=== PATIENT | female | born 1940 | race Caucasian/White ===

== ENCOUNTER 2016-08-10 15:49 | Emergency (ER) | payer MEDICARE ==
[2016-08-10 15:59] VITALS: TEMP 98.4; BMI 32.4
[2016-08-10] MEDS ORDERED: DILTIAZEM 25 MG/5 ML VIAL IV ONE (16:08)
[2016-08-10 16:22] LABS: AUTOMATED BASOPHIL 1.2 % (0-2); AUTOMATED EOSINOPHIL 2.9 % (0-5); AUTOMATED LYMPH 18.1 % (17-44); AUTOMATED MONOCYTE 9.6 % (3-10); AUTOMATED NEUTROPHIL 68.2 % (45-76); MPV 10.7 fL (7.4-10.4)
--- NOTE | 2016-08-10 16:24 | EDPRACDOC ---
- General Information Chief Complaint: Dyspnea/Resp distress Stated Complaint: ABNORMAL EKG NO CP SENT FROM URGENT CARE Time Seen by Provider: 08/10/16 16:03 Information Source: Patient, Family Mode Of Arrival: Car Home Medications: Home Medications Amlodipine Besylate [Norvasc] 5 mg PO DAILY 08/10/16 Apixaban [Eliquis] 5 mg PO BID 08/10/16 Carvedilol [Coreg] 3.125 mg PO BID 08/10/16 Cefdinir 300 mg PO .BID X 10D 08/10/16 Celecoxib (anti-inflammatory) [Celebrex] 200 mg PO BID 08/10/16 Diltiazem HCl [Cardizem Cd] 120 mg PO DAILY #30 cap 08/10/16 Fenofibrate 160 mg PO DAILY 08/10/16 Gabapentin 600 - 1,800 mg PO QHS 08/10/16 Hydrochlorothiazide 12.5 mg PO DAILY 08/10/16 Losartan Potassium [Cozaar] 100 mg PO DAILY 08/10/16 Lovastatin 20 mg PO QHS 08/10/16 Metformin HCl 500 mg PO BID 08/10/16 Allergies/Adverse Reactions: Allergies Allergy/AdvReac Type Severity Reaction Status Date / Time codeine Allergy Nausea only Verified 08/10/16 15:53 - History of Present Illness Onset: FEW DAYS HPI: PT HAS BEEN SOB FOR THE PAST FEW DAYS. PT WAS DX'D WITH A.FIB BY DR. KEITH ABOUT 1 WEEK AGO. PT WAS PUT ON MEDS (?NAME). PT WENT TO URGENT CARE TODAY B/ C SHE WAS SOB. THE PT DOES NOT FEEL HER HEART IS IRREGULAR OR FAST. THE EKG DONE AT URGENT CARE SHOWED A.FIB WITH HR ON 98 TO 108. PT WAS SENT HERE. Shortness of Breath: Moderate Relevant History: Reports: None Rhinorrhea: Reports: None Ear Symptoms: Reports: None SOB Worsens with: Reports: Exertion SOB Improves with: Reports: Nothing ED Past Medical History - Patient Medical History Cardiac History: Reports: Atrial Fibrillation, Hypertension GI/ History: Reports: Kidney Stones Systemic History: Reports: Cancer (R breast) Surgical History: Reports: Hysterectomy, Other (KIDNEY SURGERY, RIGHT BREAST) - Social Medical History Smoking Status: Never smoker ETOH: None Substance Abuse: None Lives In: Home EDM Review of Systems - Review of Systems ROS Negative Except as Marked: Yes All systems reviewed and were negative except as marked Respiratory: Shortness of Breath - Physical Exam Constitutional: Distress Oriented to: Time, Person, Place Last recorded Vital Signs: Last Vital Signs Temp 98.4 F 08/10/16 15:53 Pulse 132 H 08/10/16 16:12 Resp 18 08/10/16 16:12 BP 165/115 H 08/10/16 16:12 Pulse Ox 94 08/10/16 16:12 Oxygen Pulse Oxygen Saturation 94 O2 Device Room Air Oxygen Flow Rate Fraction of Inspired Oxygen ( FIO2) - HEENT Head: Normal ( normocephalic) Eye Exam: Normal (PERRL, EOMI, Sclera white) Oropharynx: Normal (Pharynx:Moist without exudate,Gums-no swelling) ENT EAC: Normal TMJ: Normal Nose: No Symptoms Reported (septum midline) Neck: Normal (FROM, trachea at midline) - Respiratory/Cardiovascular Respiratory: Tachypnea Cardiovascular: Tachycardia, Irregular - GI Auscultation: Normal (NABS) Palpation: Normal (Soft,No rebound or guarding, non distended) Tenderness: Non tender Reaves's Sign: Negative - Musculoskeletal Back: Normal (Non-Tender) Extremities: Normal (Normal tone, Pulses 2+ No cyanosis or edema, FROM) - Integumentary Skin: Normal, Warm, Dry Lymphatics: Normal (no adenopathy) - Neurologic Memory Impaired: Normal Motor Function: Normal (Normal tone, Pulses 2+ No cyanosis or edema, FROM) Cranial Nerve: Normal (CN II-X11 intact sensation, strength 5/5) Cerebellar: Normal Mood Description: Normal Thought: Coherent Perception: Normal ED SOB MDM - Results Result Diagrams: 08/10/16 16:10 08/10/16 16:10 - EKG EKG #1 EKG Time: 16:21 -: Yes EKG interpreted by me Rate: bpm: 87 [place]: Normal Rhythm: Afib, PVCs Block: None Hypertrophy: None ST: New, Inf, Ischemia Comparison: 01/28/10 - Diagnostic Imaging Chest Image interpreted by: Radiologist Diagnostic Imaging Comments: Stable borderline cardiomegaly, vascular congestion and right basilar atelectasis. No acute findings demonstrated. - Additional Information Additional Information: UPON MY EXAM, PT'S HR ON THE MONITOR IN THE UPPER 140S. 1 DOSE OF THE CARDIZEM 20 MG IV BROUGHT PT'S HR TO THE 70S. IT HAS STAYED THAT WAY FOR ALMOST 2 HRS. PT IS FEELING MUCH BETTER. THE NEW MED PT WAS PUT ON IS COREG. I WILL STOP THAT AND ADD CARDIZEM SINCE THAT HELPED. Decision Time to Discharge: 17:38 - Departure Yes I personally saw and evaluated the patient. Disposition: Home Condition: Fair Final Diagnosis: Paroxysmal atrial fibrillation with RVR Instructions: Atrial Fibrillation (ED) Education/Counseling Given To: Patient, Family Member Education/Counseling Given Regarding: Diagnosis, Treatment, Follow Up Referrals: Dillan Almonte MD [Primary Care Provider] - One Week Lloyd Guzman MD [Staff Physician] - One Week Prescriptions: Diltiazem HCl [Cardizem Cd] 120 mg PO DAILY #30 cap Forms: ED Discharge Instructions Additional Instructions: STOP COREG
[2016-08-10 16:37] LABS: PARTIAL THROMB. TIME 25.6 SEC (22-35); PT-INR 1.1
[2016-08-10 16:38] LABS: BLOOD UREA NITROGEN 11 MG/DL (7-17); CALCIUM 9.6 MG/DL (8.4-10.2); CALCULATED OSMOLALITY 267 MOs/Kg (270-290); CHLORIDE 101 mEq/L (98-107); GLUCOSE 100 MG/DL (70-99); SODIUM LEVEL 139 mEq/L (137-146); TOTAL PROTEIN 7.1 G/DL (6.3-8.2)
--- NOTE | 2016-08-10 16:38 | DIRPT ---
CLINICAL DATA: Shortness of breath. Recently diagnosed with irregular heartbeat. EXAM: PORTABLE CHEST 1 VIEW COMPARISON: 01/28/2010. FINDINGS: 1615 hours. The heart size and mediastinal contours are stable. There is aortic atherosclerosis and mild chronic vascular congestion. There is elevation of the right hemidiaphragm with stable right basilar atelectasis. No edema, confluent airspace opacity or pleural effusion identified. The bones appear unchanged. Telemetry leads overlie the chest. IMPRESSION: Stable borderline cardiomegaly, vascular congestion and right basilar atelectasis. No acute findings demonstrated. Electronically Signed By: Shad Sarmiento M.D. On: 08/10/2016 16:35
[2016-08-10 16:49] LABS: RBC/URINE 0-2 (0-5)
[2016-08-10 16:53] LABS: FREE T3 2.94 pg/mL (2.77-5.27); FREE T4 1.71 ng/dL (0.78-2.19)
[2016-08-10] MEDS ORDERED: Diltiazem HCl 100 MG in D5W 100 ML IV SCH (17:00)
[2016-08-10 17:06] LABS: LEUKOCYTES/URINE NEG (NEGATIVE); NITRITE/URINE NEG (NEGATIVE); URINE OCCULT BLOOD NEG (NEG/TRACE)
[2016-08-10 17:07] LABS: hTSH 2.11 uIU/mL (0.5-4.67)
[2016-08-10 17:51] VITALS: BP 138/78; PULSE 88
--- NOTE | 2016-08-11 15:03 | PCM.CARDCO ---
Consultation Date: 08/11/16 Requesting Physician: Dillan Almonte Millwright Supervisor: Timothy Monroy - History of Present Illness Dr. Almonte called and asked for me to make arrangements to admit this patient to the hospital with a history of recent onset of atrial fibrillation treated as an outpatient with anticoagulant and calcium channel kofi was failed rate control and is symptomatic with the resting heart rate of 150 beats per minute. He also feels she is in congestive heart failure she short of breath and weak and was seen yesterday in our emergency room and discharged home once her heart rate was controlled. Her chads 2 Vasc score is 5. She relates me she has been short of breath for few days with weakness orthopnea PND and wheezing. Her predominant complaint is shortness of breath. No chest pain palpitation or syncope and she is unaware how long she has been in atrial fibrillation. She has no known history of heart disease. Her medical problems include hypertension diabetes and hyperlipidemia. She has had no bleeding complications were contraindication anticoagulation. Chief Complaint: Recurrent atrial fibrillation - Past Medical and Surgical History Cardiac History: Reports: Atrial Fibrillation, Hypertension, Hypercholesterolemia GI/ History: Reports: Kidney Stones Systemic History: Reports: Cancer (R breast), Diabetes Neurological History: Reports: Multiple Sclerosis Past Surgical History: Reports: Hysterectomy, Other (KIDNEY SURGERY, RIGHT BREAST) Allergies codeine Allergy (Verified 08/10/16 15:53) Nausea only Home Medications Amlodipine Besylate [Norvasc] 5 mg PO DAILY 08/10/16 Apixaban [Eliquis] 5 mg PO BID 08/10/16 Carvedilol [Coreg] 3.125 mg PO BID 08/10/16 Cefdinir 300 mg PO .BID X 10D 08/10/16 Celecoxib (anti-inflammatory) [Celebrex] 200 mg PO BID 08/10/16 Diltiazem HCl [Cardizem Cd] 120 mg PO DAILY #30 cap 08/10/16 Fenofibrate 160 mg PO DAILY 08/10/16 Gabapentin 600 - 1,800 mg PO QHS 08/10/16 Hydrochlorothiazide 12.5 mg PO DAILY 08/10/16 Losartan Potassium [Cozaar] 100 mg PO DAILY 08/10/16 Lovastatin 20 mg PO QHS 08/10/16 Metformin HCl 500 mg PO BID 08/10/16 - Social History Lives: With Family Smoking Status: Never smoker Social History: Denies: Alcohol Use, Substance Use Disorder - Family History Reports: Cardiac Disorders (Father) - Review of Systems Yes All systems reviewed and were negative except as marked Constitutional: Weakness. negative: Chills, Fever - Eyes No Symptoms Reported - Ears No Symptoms Reported - Nose Congestion - Mouth Mouth: No Symptoms Reported - Throat/Neck No Symptoms Reported - Respiratory Cough, Shortness of Breath, Wheezing. negative: Sputum - Cardiovascular Edema, Orthopnea, PND. negative: Chest Pain, Palpitations - Gastrointestinal Gastrointestinal: Nausea (Today) - Genitourinary Genitourinary: Other (Incontinence) - Neurological Gait Difficulty - Musculoskeletal Musculoskeletal:: No Symptoms Reported - Integumentary No Symptoms Reported - Allergic/Immunologic No Symptoms Reported - Hematologic No Symptoms Reported - Endocrine No Symptoms Reported - Psychiatric No Symptoms Reported - Physical Exam Constitutional: Other (She appears short of breath and has audible wheezing) Oriented to: Time, Person, Place Exam: Last Vital Signs Temp 98.4 F 08/10/16 15:53 Pulse 88 08/10/16 17:12 Resp 16 08/10/16 17:12 BP 138/78 08/10/16 17:12 Pulse Ox 97 08/10/16 17:12 Intake & Output 08/10/16 08/11/16 08/11/16 23:59 07:59 15:59 Intake Total 0 Balance 0 - HEENT Head: Normal (Moderate neck vein distention) Eye: Normal (PERRL, EOMI, Sclera white) Oropharynx: Normal (Pharynx:Moist without exudate,Gums-no swelling) ENT EAC: Normal TMJ: Normal Nose: No Symptoms Reported (septum midline) - Respiratory/Cardiovascular Respiratory: Diminished, Tachypnea, Wheezes. negative: Rales, Rhonchi Cardiovascular: Irregular (Variable 1st heart sound no S3 no murmur). negative : Systolic murmur, Gallop/S3 - GI Auscultation: Normal (NABS) Palpation: Enlarged liver (And pulsatile) Tenderness: Non tender - Musculoskeletal Back: Normal (Non-Tender) Extremities: Normal (Normal tone, Pulses 2+ No cyanosis or edema, FROM), Edema ( Plus one pretibial edema bilaterally), Femoral Pulse, Pedal Edema, Pedal Pulse, Radial Pulse. negative: Calf Tenderness, Clubbing, Cyanosis - Integumentary Skin: Normal, Warm, Dry Lymphatics: Normal (no adenopathy) - Neurologic Memory Impaired: Normal Cerebellar: Normal Mood Description: Normal Thought: Coherent Perception: Normal - Lab Results Laboratory Tests 08/10/16 08/10/16 08/10/16 16:10 16:10 16:10 Hgb 12.3 Hct 36.9 D-Dimer Quant (PE/DVT) 928 H Potassium 4.4 Troponin I < 0.01 Chest x-ray is consistent with heart mixer attendant AFib with heart rate of 130 to 140 per minute - Assessment/Plan (1) Paroxysmal atrial fibrillation with RVR I48.0 - PAROXYSMAL ATRIAL FIBRILLATION Acute Present on Admission: Yes Comment: She is in atrial fibrillation rapid rate of uncertain duration best called persistent at this time. Clinically she has decompensated heart failure and bronchospasm is best treated with IV calcium channel kofi for rate control bronchodilators for bronchospasm and diuretic for heart failure with assessment of cardiac function by echocardiogram. Try to avoid beta-blockers at this time. If she requires a 2nd drug digoxin will be used (2) Heart failure I50.9 - HEART FAILURE, UNSPECIFIED Acute Present on Admission: Yes unspecified heart failure type Comment: Clinically she is in decompensated heart failure and should be treated IV diuretic. (3) Hypertensive heart disease with CHF I11.0 - HYPERTENSIVE HEART DISEASE WITH HEART FAILURE Acute Comment: Stable continue her usual antihypertensives (4) Diabetes mellitus E11.9 - TYPE 2 DIABETES MELLITUS WITHOUT COMPLICATIONS Chronic Present on Admission: Yes type 2 Comment: Stable continue usual oral medication
--- NOTE | 2016-08-12 15:00 | CAPUEKG ---
[place], [place] Test Date: 2016-08-11 Pat Name: MORENA OTERO Department: Room: Gender: Female Histology Assistant: : Requested By: Order Number: Reading MD: Timothy Monroy MD Measurements Intervals [place] Rate: 92 P: [place]: QRS: 69 QRSD: 78 T: -43 QT: 336 QTc: 415 Interpretive Statements Atrial fibrillation Abnormal QRS-T angle, consider primary T wave abnormality Abnormal ECG Electronically Signed On 08-12-16 15:00:12 EST by Timothy Monroy MD [id number]> [id number]
== END 2016-08-10 17:52 | disposition home or self-care (01) ==
LOC: ED 15:49
DX: I48.0 Paroxysmal atrial fibrillation (principal)
CPT/HCPCS: 36415; 71010; 80053; 81001; 84439; 84443; 84481; 84484; 85025; 85379; 85610; 85730; 93005; 96374; 99284; J3490

== ENCOUNTER 2016-08-11 14:58 | Inpatient (IN) | payer MEDICARE ==
--- NOTE | 2016-08-11 15:03 | PCM.CARDCO ---
Consultation Date: 08/11/16 Requesting Physician: Dillan Almonte Powder Core Tester: Timothy Monroy - History of Present Illness Dr. Almonte called and asked for me to make arrangements to admit this patient to the hospital with a history of recent onset of atrial fibrillation treated as an outpatient with anticoagulant and calcium channel kofi was failed rate control and is symptomatic with the resting heart rate of 150 beats per minute. He also feels she is in congestive heart failure she short of breath and weak and was seen yesterday in our emergency room and discharged home once her heart rate was controlled. Her chads 2 Vasc score is 5. She relates me she has been short of breath for few days with weakness orthopnea PND and wheezing. Her predominant complaint is shortness of breath. No chest pain palpitation or syncope and she is unaware how long she has been in atrial fibrillation. She has no known history of heart disease. Her medical problems include hypertension diabetes and hyperlipidemia. She has had no bleeding complications were contraindication anticoagulation. Chief Complaint: Recurrent atrial fibrillation - Past Medical and Surgical History Cardiac History: Reports: Atrial Fibrillation, Hypertension, Hypercholesterolemia GI/ History: Reports: Kidney Stones Systemic History: Reports: Cancer (R breast), Diabetes Neurological History: Reports: Multiple Sclerosis Past Surgical History: Reports: Hysterectomy, Other (KIDNEY SURGERY, RIGHT BREAST) Allergies codeine Allergy (Verified 08/10/16 15:53) Nausea only Home Medications Amlodipine Besylate [Norvasc] 5 mg PO DAILY 08/10/16 Apixaban [Eliquis] 5 mg PO BID 08/10/16 Carvedilol [Coreg] 3.125 mg PO BID 08/10/16 Cefdinir 300 mg PO .BID X 10D 08/10/16 Celecoxib (anti-inflammatory) [Celebrex] 200 mg PO BID 08/10/16 Diltiazem HCl [Cardizem Cd] 120 mg PO DAILY #30 cap 08/10/16 Fenofibrate 160 mg PO DAILY 08/10/16 Gabapentin 600 - 1,800 mg PO QHS 08/10/16 Hydrochlorothiazide 12.5 mg PO DAILY 08/10/16 Losartan Potassium [Cozaar] 100 mg PO DAILY 08/10/16 Lovastatin 20 mg PO QHS 08/10/16 Metformin HCl 500 mg PO BID 08/10/16 - Social History Lives: With Family Smoking Status: Never smoker Social History: Denies: Alcohol Use, Substance Use Disorder - Family History Reports: Cardiac Disorders (Father) - Review of Systems Yes All systems reviewed and were negative except as marked Constitutional: Weakness. negative: Chills, Fever - Eyes No Symptoms Reported - Ears No Symptoms Reported - Nose Congestion - Mouth Mouth: No Symptoms Reported - Throat/Neck No Symptoms Reported - Respiratory Cough, Shortness of Breath, Wheezing. negative: Sputum - Cardiovascular Edema, Orthopnea, PND. negative: Chest Pain, Palpitations - Gastrointestinal Gastrointestinal: Nausea (Today) - Genitourinary Genitourinary: Other (Incontinence) - Neurological Gait Difficulty - Musculoskeletal Musculoskeletal:: No Symptoms Reported - Integumentary No Symptoms Reported - Allergic/Immunologic No Symptoms Reported - Hematologic No Symptoms Reported - Endocrine No Symptoms Reported - Psychiatric No Symptoms Reported - Physical Exam Constitutional: Other (She appears short of breath and has audible wheezing) Oriented to: Time, Person, Place Exam: Last Vital Signs Temp 98.4 F 08/10/16 15:53 Pulse 88 08/10/16 17:12 Resp 16 08/10/16 17:12 BP 138/78 08/10/16 17:12 Pulse Ox 97 08/10/16 17:12 Intake & Output 08/10/16 08/11/16 08/11/16 23:59 07:59 15:59 Intake Total 0 Balance 0 - HEENT Head: Normal (Moderate neck vein distention) Eye: Normal (PERRL, EOMI, Sclera white) Oropharynx: Normal (Pharynx:Moist without exudate,Gums-no swelling) ENT EAC: Normal TMJ: Normal Nose: No Symptoms Reported (septum midline) - Respiratory/Cardiovascular Respiratory: Diminished, Tachypnea, Wheezes. negative: Rales, Rhonchi Cardiovascular: Irregular (Variable 1st heart sound no S3 no murmur). negative : Systolic murmur, Gallop/S3 - GI Auscultation: Normal (NABS) Palpation: Enlarged liver (And pulsatile) Tenderness: Non tender - Musculoskeletal Back: Normal (Non-Tender) Extremities: Normal (Normal tone, Pulses 2+ No cyanosis or edema, FROM), Edema ( Plus one pretibial edema bilaterally), Femoral Pulse, Pedal Edema, Pedal Pulse, Radial Pulse. negative: Calf Tenderness, Clubbing, Cyanosis - Integumentary Skin: Normal, Warm, Dry Lymphatics: Normal (no adenopathy) - Neurologic Memory Impaired: Normal Cerebellar: Normal Mood Description: Normal Thought: Coherent Perception: Normal - Lab Results Laboratory Tests 08/10/16 08/10/16 08/10/16 16:10 16:10 16:10 Hgb 12.3 Hct 36.9 D-Dimer Quant (PE/DVT) 928 H Potassium 4.4 Troponin I < 0.01 Chest x-ray is consistent with heart equipment monitor phototypesetting AFib with heart rate of 130 to 140 per minute - Assessment/Plan (1) Paroxysmal atrial fibrillation with RVR I48.0 - PAROXYSMAL ATRIAL FIBRILLATION Acute Present on Admission: Yes Comment: She is in atrial fibrillation rapid rate of uncertain duration best called persistent at this time. Clinically she has decompensated heart failure and bronchospasm is best treated with IV calcium channel kofi for rate control bronchodilators for bronchospasm and diuretic for heart failure with assessment of cardiac function by echocardiogram. Try to avoid beta-blockers at this time. If she requires a 2nd drug digoxin will be used (2) Heart failure I50.9 - HEART FAILURE, UNSPECIFIED Acute Present on Admission: Yes unspecified heart failure type Comment: Clinically she is in decompensated heart failure and should be treated IV diuretic. (3) Hypertensive heart disease with CHF I11.0 - HYPERTENSIVE HEART DISEASE WITH HEART FAILURE Acute Comment: Stable continue her usual antihypertensives (4) Diabetes mellitus E11.9 - TYPE 2 DIABETES MELLITUS WITHOUT COMPLICATIONS Chronic Present on Admission: Yes type 2 Comment: Stable continue usual oral medication
[2016-08-11] MEDS ORDERED: DILTIAZEM 25 MG/5 ML VIAL IV ONE (16:16)
[2016-08-11] MEDS ORDERED: BISACODYL 5 MG TAB PO PRN (16:23)
[2016-08-11] MEDS ORDERED: GUAIFEN 100 MG-DEXTROMETH 10 MG PER 5 ML PO PRN (16:23)
[2016-08-11] MEDS ORDERED: ONDANSETRON HCL 4 MG/2 ML VIAL IV PRN (16:23)
[2016-08-11] MEDS ORDERED: MAGNESIUM HYDROXIDE 30 ML BOTTLE PO PRN (16:23)
[2016-08-11] MEDS ORDERED: Aluminum;Magnesium;Simethicone 30 ML UDC PO PRN (16:23)
[2016-08-11] MEDS ORDERED: Albuterol/Ipratropium Neb 3 ML NEB NEB PRN (16:24)
[2016-08-11] MEDS ORDERED: Pharmacy Order Set Alert SCH (17:00)
[2016-08-11] MEDS ORDERED: Diltiazem HCl 100 MG in D5W 100 ML IV SCH (17:00)
[2016-08-11] MEDS: MetFORMIN 500 MG IMMED RELEASE TAB PO SCH (17:44)
[2016-08-11] MEDS: FUROSEMIDE 40 MG/4 ML VIAL IV SCH (17:44)
[2016-08-11 17:57] LABS: hTSH 2.08 uIU/mL (0.5-4.67)
[2016-08-11] MEDS ORDERED: Vaccine Screening Complete SCH (18:00)
[2016-08-11] MEDS ORDERED: LOVASTATIN 20 MG PO SCH (21:00)
[2016-08-11] MEDS ORDERED: Non-Formulary Medication ITEM (Gabapentin [Gabapentin] 600 MG) PO SCH (21:00)
[2016-08-11] MEDS: APIXABAN 5 MG TABLET PO SCH (21:33)
[2016-08-11] MEDS: GABAPENTIN 300 MG CAP PO SCH (21:33)
[2016-08-11] MEDS: CEFDINIR 300 MG CAP PO SCH (21:34)
[2016-08-11] MEDS: PRAVASTATIN 20 MG TAB PO SCH (21:34)
[2016-08-11] MEDS: DILTIAZEM 30 MG TAB PO SCH (21:37)
[2016-08-11] MEDS: ZOLPIDEM TARTRATE 5 MG TAB PO PRN (22:10)
[2016-08-12] MEDS: DILTIAZEM 30 MG TAB PO SCH ×4 (04:05→22:39)
[2016-08-12 06:07] LABS: BLOOD UREA NITROGEN 10 MG/DL (7-17); CALCIUM 9.1 MG/DL (8.4-10.2); CALCULATED OSMOLALITY 268 MOs/Kg (270-290); CHLORIDE 99 mEq/L (98-107); GLUCOSE 92 MG/DL (70-99); SODIUM LEVEL 140 mEq/L (137-146)
[2016-08-12] MEDS: MetFORMIN 500 MG IMMED RELEASE TAB PO SCH ×2 (06:33→16:29)
[2016-08-12] MEDS ORDERED: CHAPSTICK LIP BALM TOP PRN (06:36)
--- NOTE | 2016-08-12 07:34 | PCM.CARD ---
- Subjective Reason for visit: For atrial fibrillation and heart failure Current Assessment: No New Symptoms, Cough (Without sputum), Chest Pain (Tender left lower chest wall not pleuritic.), Shortness of Breath (Mild), Wheezing ( Improved). negative: Sputum Vital Signs: Last Vital Signs Temp 98 F 08/12/16 04:06 Pulse 65 08/12/16 06:14 Resp 20 08/12/16 04:06 BP 112/80 08/12/16 04:06 Pulse Ox 95 08/12/16 04:06 Vital Signs Temp 98 F 08/12/16 04:06 Pulse 65 08/12/16 06:14 Resp 20 08/12/16 04:06 BP 112/80 08/12/16 04:06 Pulse Ox 95 08/12/16 04:06 Intake & Output 08/10/16 08/11/16 08/12/16 23:59 23:59 23:59 Intake Total 317 966 Output Total 1600 Balance -1283 966 Patient's weight 195 lb 201 lb 11.2 oz 203 lb 8 oz Intake: IV Fluids 2 966 Cardizem 100 mg In D5w -- 2 Addvantage Bag 100 ml @ 5 MG/HR 5 mls/hr IV Q10H [facility] Rx#:[id number] Left Outer Forearm 966 Oral 315 Output: Urine 1600 Other: Elimination Method Bedside Commode Brief/Pediatric Diaper Incontinent Number of Unmeasured 1 2 Voids Urine Color Yellow Wt Change in KG 3.039 kg gained 0.816 kg gained Weight Change from 6.7 lb(s) gained 1.8 lb(s) gained Previous Weight Weight (Calculated 91.490 92.306 Kilograms) Respiratory: Diminished. negative: Rales, Retractions, Rhonchi Jugular Vein Distention: None Pulse Rhythm: Irregular EKG Rhythm: Atrial Fibrillation (Controlled rate on oral calcium channel kofi offer beta-kofi) EKG Ectopy: negative: Runs >10 beats Heart Sounds: negative: S1 & S2 (Variable S1), S3, Murmur Edema Type: Pitting (Pretibial edema) Edema Degree: 1+ Lab/DI Results Reviewed: Laboratory Tests 08/11/16 08/12/16 08/12/16 16:55 04:15 04:15 Potassium 4.0 Estimated GFR (MDRD) > 60 Magnesium 2.00 Troponin I < 0.01 [id number] Pept 2270 H TSH 2.08 - Assessment/Plan (1) Atrial fibrillation Chronic I48.91 - UNSPECIFIED ATRIAL FIBRILLATION Present on Admission: Yes persistent I48.1 - Persistent atrial fibrillation Comment/Plan: Improved rates controlled off IV medication and anticoagulated. Her thyroid is normal. I would anticipate cardioversion as an outpatient once effectively anticoagulated for 21 days. (2) Hypertensive heart disease with CHF Acute I11.0 - HYPERTENSIVE HEART DISEASE WITH HEART FAILURE Comment/Plan: Improved, she has had good diuresis echocardiogram scheduled for today. Improved the continue IV diuretics today and await echocardiogram results (3) Chest pain in adult Acute R07.9 - CHEST PAIN, UNSPECIFIED Present on Admission: No Comment/Plan: Atypical musculoskeletal related to her upper respiratory tract infection her troponin is normal I will recheck an EKG this morning for completeness.
[2016-08-12] MEDS: FUROSEMIDE 40 MG/4 ML VIAL IV SCH ×2 (07:58→16:28)
[2016-08-12] MEDS: ACETAMINOPHEN 325 MG/TAB TABLET PO PRN ×2 (08:02→14:21)
[2016-08-12] MEDS ORDERED: Non-Formulary Medication ITEM (Losartan Potassium [Cozaar] 100 MG) PO SCH (09:00)
[2016-08-12] MEDS ORDERED: Non-Formulary Medication ITEM (Fenofibrate [Fenofibrate] 160 MG) PO SCH (09:00)
[2016-08-12] MEDS: CEFDINIR 300 MG CAP PO SCH ×2 (09:30→20:26)
[2016-08-12] MEDS: FENOFIBRATE 145 MG TAB PO SCH (09:31)
[2016-08-12] MEDS: APIXABAN 5 MG TABLET PO SCH ×2 (09:31→20:25)
[2016-08-12] MEDS: AMLODIPINE 5 MG TAB PO SCH (09:31)
[2016-08-12] MEDS: LOSARTAN POTASSIUM 50 MG TAB PO SCH (09:32)
--- NOTE | 2016-08-12 11:05 | DIRPT ---
CLINICAL DATA: Chest pain. Recent bronchitis. EXAM: CHEST 2 VIEW COMPARISON: 08/10/2016. FINDINGS: The cardiac silhouette remains mildly enlarged. The lungs are clear. Central peribronchial thickening with progression. No airspace consolidation. Thoracic spine degenerative changes. IMPRESSION: Moderate central bronchitic changes. Electronically Signed By: Brenden Hall M.D. On: 08/12/2016 11:03
[2016-08-12] MEDS: POTASSIUM CHLORIDE 20 MEQ TAB PO SCH (11:43)
[2016-08-12 14:14] VITALS: BMI 33.8
--- NOTE | 2016-08-12 14:59 | CAPUEKG ---
[place], [place] Test Date: 2016-08-12 Pat Name: MORENA OTERO Department: Room: 427 Gender: Female Redevelopment Specialist: : Requested By: Order Number: Reading MD: Timothy Monroy MD Measurements Intervals [place] Rate: 79 P: [place]: QRS: 48 QRSD: 80 T: -31 QT: 390 QTc: 447 Interpretive Statements Atrial fibrillation Abnormal QRS-T angle, consider primary T wave abnormality Abnormal ECG Electronically Signed On 08-12-16 14:58:54 EST by Timothy Monroy MD <[email or web address]> [id number]
[2016-08-12] MEDS: GABAPENTIN 300 MG CAP PO SCH (20:26)
[2016-08-12] MEDS: PRAVASTATIN 20 MG TAB PO SCH (20:26)
[2016-08-12] MEDS: ZOLPIDEM TARTRATE 5 MG TAB PO PRN (20:36)
[2016-08-13] MEDS: DILTIAZEM 30 MG TAB PO SCH ×2 (06:17→11:32)
[2016-08-13] MEDS: MetFORMIN 500 MG IMMED RELEASE TAB PO SCH (07:18)
[2016-08-13] MEDS: CEFDINIR 300 MG CAP PO SCH (07:21)
[2016-08-13] MEDS: FUROSEMIDE 40 MG/4 ML VIAL IV SCH (07:21)
[2016-08-13] MEDS: AMLODIPINE 5 MG TAB PO SCH (07:21)
[2016-08-13] MEDS: APIXABAN 5 MG TABLET PO SCH (07:21)
[2016-08-13] MEDS: FENOFIBRATE 145 MG TAB PO SCH (07:21)
[2016-08-13] MEDS: LOSARTAN POTASSIUM 50 MG TAB PO SCH (07:22)
--- NOTE | 2016-08-13 07:46 | PCM.CARD ---
- Subjective Reason for visit: For atrial fibrillation persistent and heart failure diastolic Current Assessment: No New Symptoms (I will stop by the nursing staff this morning tell me she is having abdominal pain, she is having the same tenderness over the lower costochondral junction on the left point tender not severe and in fact feels markedly improved today). negative: Cough (Resolved), Edema, Sputum, Shortness of Breath, Wheezing Vital Signs: Last Vital Signs Temp 97.6 F 08/13/16 04:04 Pulse 86 08/13/16 06:54 Resp 20 08/13/16 04:04 BP 112/64 08/13/16 04:04 Pulse Ox 97 08/13/16 04:04 Vital Signs Temp 97.6 F 08/13/16 04:04 Pulse 86 08/13/16 06:54 Resp 20 08/13/16 04:04 BP 112/64 08/13/16 04:04 Pulse Ox 97 08/13/16 04:04 Intake & Output 08/11/16 08/12/16 08/13/16 23:59 23:59 23:59 Intake Total 317 1606 60 Output Total 1600 1300 450 Balance -1283 306 -390 Patient's weight 201 lb 11.2 oz 203 lb 8 oz 202 lb 6.4 oz Intake: IV Fluids 2 966 Cardizem 100 mg In D5w -- 2 Addvantage Bag 100 ml @ 5 MG/HR 5 mls/hr IV Q10H [facility] Rx#:[id number] Left Outer Forearm 966 Oral 315 640 60 Output: Urine 1600 1300 450 Other: Elimination Method Bedside Commode Bedside Commode Bedside Commode Brief/Pediatric Diaper Incontinent Number of Unmeasured 1 1 2 Voids Urine Color Yellow Yellow Yellow Wt Change in KG 3.039 kg gained 0.816 kg gained 0.499 kg loss Weight Change from 6.7 lb(s) gained 1.8 lb(s) gained 1.1 lb(s) loss Previous Weight Weight (Calculated 91.490 92.306 91.807 Kilograms) Respiratory: Normal - CTA Jugular Vein Distention: None Pulse Rhythm: Irregular EKG Rhythm: Atrial Fibrillation (Controlled rate) EKG Ectopy: negative: Runs >10 beats Heart Sounds: negative: S1 & S2 (Variable S1), S3, Murmur (No edema) - Assessment/Plan (1) Atrial fibrillation Chronic I48.91 - UNSPECIFIED ATRIAL FIBRILLATION Present on Admission: Yes persistent I48.1 - Persistent atrial fibrillation Comment/Plan: Rate is controlled on calcium channel kofi she is anticoagulated. I would like to see her back in my office in about 3 weeks for consideration of elective cardioversion as her atrial fibrillation cause diastolic heart failure and appears to be recent in onset. (2) Hypertensive heart disease with CHF Acute I11.0 - HYPERTENSIVE HEART DISEASE WITH HEART FAILURE Comment/Plan: Improved blood pressure target continue current treatment (3) Chest pain in adult Acute R07.9 - CHEST PAIN, UNSPECIFIED Present on Admission: No Comment/Plan: EKG without ischemic changes follow-up troponin remains nondetectable, she is having chest wall musculoskeletal pain from bronchitis and coughing. This is musculoskeletal I will start her on Celebrex along with a PPI, her bronchitis is improved she will finish her antibiotics I will place her on a bronchodilator MDI at discharge I would like her to see her family doctor rounds time she had finished her antibiotics before see me back in my office.
[2016-08-13 08:45] LABS: BLOOD UREA NITROGEN 12 MG/DL (7-17); CALCIUM 9.4 MG/DL (8.4-10.2); CALCULATED OSMOLALITY 269 MOs/Kg (270-290); CHLORIDE 96 mEq/L (98-107); GLUCOSE 102 MG/DL (70-99); SODIUM LEVEL 140 mEq/L (137-146)
[2016-08-13] MEDS ORDERED: PANTOPRAZOLE 40 MG TAB PO SCH (10:00)
[2016-08-13] MEDS: POTASSIUM CHLORIDE 20 MEQ TAB PO SCH (11:32)
[2016-08-13 12:00] VITALS: BP 131/70; TEMP 97.8
[2016-08-13 13:52] VITALS: PULSE 89
[2016-08-13] MEDS ORDERED: ALBUTEROL 6.7 GM MDI INH SCH ×2 (14:00→16:00)
--- NOTE | 2016-08-13 14:02 | PCM.DCS92 ---
- Final/Secondary Discharge Diagnosis (1) Atrial fibrillation Acute I48.91 - UNSPECIFIED ATRIAL FIBRILLATION Present on Admission: Yes persistent I48.1 - Persistent atrial fibrillation Plan/Goal/Comment: She presented with persistent atrial fibrillation rapid uncontrolled rate who failed outpatient treatment with initially a beta-debi and subsequent oral calcium channel debi. Once admitted to the hospital she is placed on IV Cardizem subsequently short-acting oral preps and a rate was easily controlled remainder of the hospitalization. She was on oral anticoagulant on admission was continued and I will plan to see her back in the office and consider outpatient cardioversion after 3 full weeks of anticoagulation. (2) Hypertensive heart disease with CHF Acute I11.0 - HYPERTENSIVE HEART DISEASE WITH HEART FAILURE Present on Admission: Yes Plan/Goal/Comment: With a rapid uncontrolled rate she developed heart failure due to tachycardia with atrial fibrillation and responded to IV diuresis, at the time of discharge she is free of signs and symptoms of heart failure is not short of breath supine is ambulate in the hallways. With her heart failure think it is important to resume sinus rhythm and will plan cardioversion in 3 weeks. She has received heart failure education. I will ask her to be seen by her primary care doctor next week in followup for bronchitis show continue oral antibiotic and show for continue on a bronchodilator she is quite bronchospastic early in her hospital course. I will ask that she have follow-up lab work including BMP and BNP performed in her PCP office next week and my office will call her to be seen in the next 7-10 days in my office in follow-up. She will continue her outpatient antihypertensives. I will discharge her home from the hospital on furosemide 40 mg daily is a diuretic along with oral potassium supplement. (3) Chest pain in adult Acute R07.9 - CHEST PAIN, UNSPECIFIED Present on Admission: No Plan/Goal/Comment: During the hospitalization she has had musculoskeletal costochondral pain normal troponins EKGs and reproducible pain on physical examination. I will discharge her home on Celebrex for 1 week and to take a PPI with it for gastric protection. At this time I do not think she requires a coronary ischemia evaluation. Discharge Disposition: Home Discharge Condition: Fair Cognitive Discharge Status: Unimpaired Fuctional Discharge Status: Independent, Cane Assistance Home Medications/ New Prescriptions: New Albuterol Sulfate [Proventil Hfa] 2 puff INH QID #1 inhaler Celecoxib (anti-inflammatory) [Celebrex] 200 mg PO DAILYWM #14 capsule Diltiazem HCl [Cardizem] 30 mg PO Q6 #120 tablet Furosemide [Lasix] 40 mg PO DAILY #30 tablet POTASSIUM CHLORIDE Tablet [K-DUR 20 mEq Tablet*] 20 meq PO DAILY@1200 #30 tab.er.prt Pantoprazole Sodium [Protonix] 40 mg PO 0600 #14 tablet No Action Lovastatin 20 mg PO QHS Losartan Potassium [Cozaar] 100 mg PO DAILY Hydrochlorothiazide 12.5 mg PO DAILY Amlodipine Besylate [Norvasc] 5 mg PO DAILY Metformin HCl 500 mg PO BID Gabapentin 600 - 1,800 mg PO QHS Fenofibrate 160 mg PO DAILY Celecoxib (anti-inflammatory) [Celebrex] 200 mg PO DAILY Cefdinir 300 mg PO .BID X 10D Carvedilol [Coreg] 3.125 mg PO BID Apixaban [Eliquis] 5 mg PO BID Diltiazem HCl [Cardizem Cd] 120 mg PO DAILY #30 cap Diet at Discharge: Cardiac, Low Salt Activity: As Tolerated Call Office For: Worsening Symptoms - DC Summary Notes Hospital Course Note:: Discharge summary on patient named MORENA OTERO admitted to [facility] on 08/11/16 by Timothy Monroy MD. Date of discharge is []. Heart Failure DC - Education Provide the following patient education: Yes Cardiac Prudent Diet (Restricted Salt Intake) - Discharge Medications Beta Debi Ordered: Contraindicated (See Below) Beta Debi Contraindicated: Bronchospasm Ejection Fraction (% or Description): juan jose BOO/ARB Ordered (Patients with EF<40% use BOO INHIBITORS &/or ARBs): Home Medication Continued at Discharge Anticoagulant Ordered for Afib: Home Medication Continued at Discharge - Physical Exam Vital Signs: Initial Vitals Pulse Rate 120 H 08/11/16 15:45
[2016-08-14] MEDS ORDERED: Celecoxib 200 MG CAP PO SCH ×2 (08:00→09:00)
[2016-08-14] MEDS ORDERED: FUROSEMIDE 40 MG TAB PO SCH (09:00)
== END 2016-08-13 15:18 | disposition home or self-care (01) | DRG 310 ==
LOC: PCU 15:22
PROVIDERS: ADMIT Internal Medicine Cardiovascular Disease; ATTEND Internal Medicine Cardiovascular Disease
DX: I48.1 Persistent atrial fibrillation (principal); I50.9 Heart failure, unspecified; G35 Multiple sclerosis; I10 Essential (primary) hypertension; R00.0 Tachycardia, unspecified; E78.00 Pure hypercholesterolemia, unspecified; E11.9 Type 2 diabetes mellitus without complications; Z79.84 Long term (current) use of oral hypoglycemic drugs; Z79.899 Other long term (current) drug therapy
CPT/HCPCS: 71020; 80048; 82962; 83735; 83880; 84443; 84484; 93005; 93306; 94640; 97161; J1940; J3490; J7060; J7620